=== PATIENT | male | born 1940 | race Caucasian/White ===

== ENCOUNTER 2017-08-11 06:40 | Day surgery (SDC) | payer MEDICARE, MEDICAID ==
[2016-05-15 15:07] VITALS: BMI 26.0
[2017-08-11] MEDS ORDERED: Lactated Ringer's 1,000 ML IV ONE ×2 (08:15)
[2017-08-11] MEDS ORDERED: Propofol 10 mg/ml Inj (20 ML) ONE ×2 (08:18)
[2017-08-11] MEDS ORDERED: Lidocaine Hydrochloride 10 ML INJ ONE (08:18)
--- NOTE | 2017-08-11 08:20 | CP.SDSHP ---
Same Day Surgery H & P - History Proposed Procedure: Egd. Colonoscopy Pre-Op Diagnosis: Iron deficiency anemia - Previous Medical/Surgical History Cardiac: Hypertension Neuro: Seizure Disorder Comments: One pint of vodka per almost daily Previous Surgical History: caratacts. varicose veins stripping - Allergies Allergies: Allergies No Known Allergies Allergy (Verified 05/15/16 15:12) - Physical Exam Vital Signs: Vital Signs 08/11/17 07:06 Temperature 98.4 F Pulse Rate 71 Respiratory 19 Rate Blood Pressure 160/60 H O2 Sat by Pulse 100 Oximetry Mental Status: Alert & Oriented x3 Neuro: WNL Heart: WNL Lungs: WNL GI: WNL - Impression Impression: iron deficiency anemia Pt. Evaluated Today:Candidate for Anesthesia & Procedure: Yes - Date & Time Date: 08/11/17 Time: 08:20 Short Stay Discharge - Short Stay Discharge Admitting Diagnosis/Reason for Visit: CHANGE IN BOWEL HABIT/IRON DEFICIENCY ANEMIA, UNSP Disposition: HOME/ ROUTINE
[2017-08-11] MEDS ORDERED: Pantoprazole 40 mg EC Tab PO STA (08:24)
[2017-08-11 09:22] VITALS: TEMP 97.5
[2017-08-11 09:46] VITALS: O2SAT 98
[2017-08-11 11:43] VITALS: BP 142/71; PULSE 75; RESP 18
== END 2017-08-11 10:35 | disposition home or self-care (01) ==
LOC: C.ENDO 06:40
PROVIDERS: ATTEND Internal Medicine Gastroenterology
DX: D50.9 Iron deficiency anemia, unspecified (principal); K64.1 Second degree hemorrhoids; K57.30 Diverticulosis of large intestine without perforation or abscess without bleeding; K21.0 Gastro-esophageal reflux disease with esophagitis; K44.9 Diaphragmatic hernia without obstruction or gangrene; K29.70 Gastritis, unspecified, without bleeding; D12.8 Benign neoplasm of rectum; I10 Essential (primary) hypertension
CPT/HCPCS: 43239; 45385; 88305; J2704; J3010; J7120

== ENCOUNTER 2018-01-14 16:36 | Emergency (ER) | payer MEDICARE, MEDICAID ==
[2018-01-14 16:36] VITALS: BMI 26.0
[2018-01-14 16:54] VITALS: BP 153/71; PULSE 76; RESP 18; TEMP 98.4; O2SAT 99
--- NOTE | 2018-01-14 17:06 | C.PDOC ---
History Of Present Illness 77 y/o male presents to the ED for staple removal. Patient was seen here on 01/07 for fall and scalp injury. Head CT was negative at that time. Patient denies any severe headache, nausea, vomiting, or discharge/redness to wound site. Time Seen by Provider: 01/14/18 16:57 Chief Complaint (Nursing): Suture/Staple Removal History Per: Patient History/Exam Limitations: no limitations Onset/Duration Of Symptoms: Days Ago (7) Current Symptoms Are (Timing): Still Present Past Medical History Reviewed: Historical Data, Nursing Documentation, Vital Signs Vital Signs: Last Vital Signs Temp 98.4 F 01/14/18 16:51 Pulse 76 01/14/18 16:51 Resp 18 01/14/18 17:10 BP 153/71 H 01/14/18 16:51 Pulse Ox 99 01/14/18 17:05 - Medical History PMH: Anemia, HTN, Seizures Denies: Chronic Kidney Disease Surgical History: Endoscopy - [facility] Procedures ALCOHOL DETOXIFICATION (04/11/14) C.A.T. SCAN OF HEAD (04/25/14) TRANSFUSE NONAUT FRESH PLASMA IN PERIPH VEIN, PERC (05/15/16) Family History: States: Unknown Family Hx - Social History Hx Tobacco Use: No Hx Alcohol Use: Yes (drinks daily) Hx Substance Use: No - Immunization History Hx Tetanus Toxoid Vaccination: No Hx Influenza Vaccination: No Hx Pneumococcal Vaccination: No Review Of Systems Except As Marked, All Systems Reviewed And Found Negative. Constitutional: Negative for: Fever Gastrointestinal: Negative for: Nausea, Vomiting Skin: Positive for: Lesions (scalp lesions, closed with bethany) Neurological: Negative for: Weakness, Numbness, Incoordination, Headache, Dizziness Physical Exam - Physical Exam Appears: Non-toxic, No Acute Distress Skin: Warm, Dry Head: Normacephalic, Other (Bethany intact, wound appears clean, dry, and intact ) Eye(s): bilateral: Normal Inspection, PERRL, EOMI Neck: Normal ROM, Supple Chest: Symmetrical Respiratory: No Accessory Muscle Use, Other (No respiratory distress) Extremity: Bilateral: Atraumatic, Normal Color And Temperature, Normal ROM Neurological/Psych: Oriented x3, Normal Speech, Normal Cranial Nerves ED Course And Treatment O2 Sat by Pulse Oximetry: 99 (RA) Pulse Ox Interpretation: Normal Medical Decision Making Medical Decision Making: bethany removed from stellate occpital/vertex stellate lac from 01/07 well healed, no s/s of infection. Disposition Doctor Will See Patient In The: Office Counseled Patient/Family Regarding: Studies Performed, Diagnosis - Disposition Referrals: Hubert Holland MD [Staff Provider] - Disposition: HOME/ ROUTINE Disposition Time: 17:05 Condition: GOOD Additional Instructions: bethany removed today wash with soap and water regularly/daily. Instructions: Staple Removal Forms: [employer] ([place]) - POA Present On Arrival: None - Clinical Impression Clinical Impression: Removal of staple - Scribe Statement The provider has reviewed the documentation as recorded by the Scribe (Katie Soliz) Provider Attestation: All medical record entries made by the Scribe were at my direction and personally dictated by me. I have reviewed the chart and agree that the record accurately reflects my personal performance of the history, physical exam, medical decision making, and the department course for this patient. I have also personally directed, reviewed, and agree with the discharge instructions and disposition.
== END 2018-01-14 17:29 | disposition home or self-care (01) ==
LOC: C.ER 16:36
DX: Z48.02 Encounter for removal of sutures (principal)